=== PATIENT | male | born 1995 | race Caucasian/White ===

== ENCOUNTER 2021-02-04 09:26 | Emergency (ER) | payer BC ==
[2021-02-04 09:33] VITALS: BP 142/101; PULSE 105; RESP 18; TEMP 100
--- NOTE | 2021-02-04 10:20 | ED ---
URI HPI - General Chief Complaint: Upper Respiratory Infection Stated Complaint: covid exposure Time Seen by Provider: 02/04/21 10:01 Source: patient Mode of arrival: ambulatory Limitations: no limitations - History of Present Illness Initial Comments: She is a healthy 25-year-old male presenting to the emergency department with concerns of having having Covid. Patient states his tested positive for covid yesterday. Patient started having sinus drainage, mild cough and some congestion yesterday. He also started developing a fever last night and today. He did take some Tylenol yesterday which did seem to help with his fever. He denies history of asthma or COPD, he does admit to smoking vape. He does admit to some mild body aches. He did not take any Tylenol or Motrin today. He denies any nausea or vomiting, no diarrhea, no chest pain or shortness of breath today, he denies any other complaints at this time. Upon arrival to the ER, he is febrile to 100.0, slightly tachycardia at 105, 92% on room air. - Related Data Allergies Allergy/AdvReac Type Severity Reaction Status Date / Time No Known Allergies Allergy Verified 02/04/21 09:30 Review of Systems ROS Statement: Those systems with pertinent positive or pertinent negative responses have been documented in the HPI. ROS Other: All systems not noted in ROS Statement are negative. Past Medical History Past Medical History: No Reported History History of Any Multi-Drug Resistant Organisms: None Reported Additional Past Surgical History / Comment(s): oral Past Psychological History: Anxiety Smoking Status: Vaper Past Alcohol Use History: Occasional Past Drug Use History: None Reported General Exam - General Exam Comments Initial Comments: GENERAL: Patient is well-developed and well-nourished. Patient is nontoxic and in no acute distress. HEAD: Atraumatic, normocephalic. EYES: Pupils equal round and reactive to light, extraocular movements intact, sclera anicteric, conjunctiva are normal. Eyelids were unremarkable. ENT: TMs normal, nares patent, oropharynx clear without exudates. Moist mucous membranes. NECK: Normal range of motion, supple without lymphadenopathy or JVD. LUNGS: Unlabored respirations. Breath sounds clear to auscultation bilaterally and equal. No wheezes rales or rhonchi. HEART: Slightly tachycardia rate and rhythm without murmurs, rubs or gallops. ABDOMEN: Soft, nontender, normoactive bowel sounds. No guarding, no rebound. No masses appreciated. : Deferred MUSCULOSKELETAL: Normal extremities with adequate strength and normal range of motion, no pitting or edema. No clubbing or cyanosis. NEUROLOGICAL: Patient is alert and oriented x 3. Motor and sensory are also intact. Cranial nerves II through XII grossly intact. Symmetrical smile. Normal speech, normal gait. PSYCH: Normal mood, normal affect. SKIN: Warm, Dry, normal turgor, no rashes or lesions noted. Limitations: no limitations Course Vital Signs 02/04/21 09:30 Temperature 100.0 F H Pulse Rate 105 H Respiratory 18 Rate Blood Pressure 142/101 O2 Sat by Pulse 92 L Oximetry Medical Decision Making - Medical Decision Making Patient is a 25-year-old male here requesting a Covid test. His tested positive yesterday, he started having body aches, chills, congestion yesterday. His rapid test is positive today. Patient did arrive slightly febrile, slightly tachycardia, 92% on room air. His exam is unremarkable, is in no acute distress. No chest pain or shortness of breath reported today. He states he d id not take any Tylenol or Motrin yet today but will take some when he gets home. He does not meet qualifications for antiviral infusion therapy. We discussed continuing to alternate between Tylenol and Motrin for body aches, fever, increase his fluid intake. Patient is stable for discharge. Return parameters were discussed with the patient and he verbalized understanding. - Lab Data Lab Results 02/04/21 Range/Units 09:37 Coronavirus (PCR) Detected A (Not Detectd) Disposition Clinical Impression: COVID-19 Disposition: HOME SELF-CARE Condition: Stable Instructions (If sedation given, give patient instructions): Coronavirus Disease 2019 (COVID-19) Additional Instructions: Please return to the Emergency Department if symptoms worsen or any other concerns. Rapid Covid test is positive today. Alternate between Tylenol and Motrin for body aches, fever control. Increase your fluid intake. Follow-up with your PCP as needed. Is patient prescribed a controlled substance at d/c from ED?: No Referrals: Shilpi Naylor MD [Primary Care Provider] - 1-2 days Time of Disposition: 10:20
== END 2021-02-04 10:41 | disposition home or self-care (01) ==
LOC: EC 09:26
DX: U07.1 COVID-19 (principal); F17.290 Nicotine dependence, other tobacco product, uncomplicated
CPT/HCPCS: 87635; 99283

== ENCOUNTER → 2024-08-14 | Outpatient (CLI) | payer OTHER ==
[2024-08-14 14:18] VITALS: BP 115/76; PULSE 84; RESP 16; TEMP 98
--- NOTE | 2024-08-14 14:44 | P.SLEEP ---
History of Present Illness DATE: 08/14/2024 CONSULTATION/NEW PATIENT EVALUATION HISTORY OF PRESENT ILLNESS/SLEEP-WAKE EVALUATION: 28-year-old gentleman had been evaluated in the sleep center for excessive sleepiness and possible obstructive sleep apnea hypopnea syndrome. SLEEP SCHEDULE: Usually sleep schedule from 11:30 PM to 5:30 AM on weekdays and from 1 AM until 8 AM on weekend. FALLING ASLEEP: Usually no significant problems with falling asleep. DURING SLEEP: Patient snores and wakes up from sleep once with nocturia. No history of hypnogogical hallucinations, sleep paralysis, or cataplexy. DURING THE DAY/WAKE STATE: In the morning patient wake up tired, falling asleep during the day, has problems with memory, concentration and anxiety. [place] sleepiness scale is increased significantly to 14. Usually patient does not take naps. PAST MEDICAL HISTORY: Episodes of anxiety. PAST SURGICAL HISTORY: None. MEDICATIONS: Please see below. SOCIAL HISTORY: Please see below. FAMILY HISTORY: Heart problems, arthritis, snoring. REVIEW OF SYSTEMS: Snoring, sleepiness during the day. No fevers. No double vision. No recent chest pain. No shortness of breath. No abdominal pain. No bleeding episodes. No blood in urine. No seizure episodes. PHYSICAL EXAMINATION: GENERAL: A pleasant patient without any distress. VITAL SIGNS: Please see below, weight 220 pounds, BMI 32. HEENT: PERRLA, EOMI. Evaluation of oropharynx showed tongue protrudes midline, low position of soft palate Mallampati 4. NECK: Supple. No JVD. Thyroid is not palpable. 15.5 inches in circumference. LUNGS: Clear to percussion and to auscultation. Good air exchange. No wheezing or rhonchi. HEART: S1, S2 regular. No murmurs, gallops or rubs. ABDOMEN: Soft and nontender. Bowel sounds are present. No organomegaly appreciated. EXTREMITIES: No clubbing or cyanosis. PSYCHOLOGY PHYSICIAN: Awake, alert, and oriented x3. Cranial nerves 2 to 7 intact. There is no fasciculation or atrophy noted. No focal deficits observed. ASSESSMENT: 1. Snoring, extremely low position of soft palate Mallampati 4, sleepiness. Possible obstructive sleep apnea hypopnea syndrome. 2. Sleepiness with [place] Sleepiness Scale 14 dictate necessity to include hypersomnia differential diagnosis. 3. Obesity in mild range, BMI 32. 4. History of anxiety. PLAN: 1. Polysomnography for evaluation of patient's breathing during sleep, multiple sleep latency test if polysomnogram will be negative for obstructive sleep apnea hypopnea syndrome. 2. Following plan after reading sleep study 3. Preferable position during sleep on the side. 4. No driving if patient feels any sleepiness. Patient is aware of civil and criminal liability for unsafe driving. 5. Sleep hygiene with regular sleep time for at least 7.5-8 hours. 6. Watching and losing weight. Thank you very much for referring this patient for consultation. Sincerely, Pal Abernathy MD, PhD, FAASM. Diplomat of [place] [employer], Sleep Medicine Board by [place] [employer] [place] [employer] Representative of [facility] [place] cc: Kaleb Meraz MD Past Medical History Past Medical History: No Reported History History of Any Multi-Drug Resistant Organisms: None Reported Additional Past Surgical History / Comment(s): vasectomy, oral Past Anesthesia/Blood Transfusion Reactions: No Reported Reaction Past Psychological History: ADD/ADHD, Anxiety Smoking Status: Current every day smoker, Vaper Past Alcohol Use History: Occasional Past Drug Use History: None Reported - Past Family History Father Family Medical History: Coronary Artery Disease (CAD), Rheumatoid Arthritis (RA) Additional Family Medical History / Comment(s): snoring Medications and Allergies Home Medications Medication Instructions Recorded Confirmed Type Citalopram Hydrobromide 40 mg PO DAILY 08/14/24 08/14/24 History [Citalopram HBr] Methylphenidate HCl 20 mg PO BID 08/14/24 08/14/24 History [Methylphenidate ER] Allergies Allergy/AdvReac Type Severity Reaction Status Date / Time No Known Allergies Allergy Verified 02/04/21 09:30 Physical Exam Vitals: Vital Signs Temp Pulse Resp BP Pulse Ox 08/14/24 14:16 98 F 84 16 115/76 97 Intake and Output 08/13/24 08/14/24 08/14/24 22:59 06:59 14:59 Other: Weight 99.79 kg Sleep Note - Sleep Data ESS Total: 14 - Sleep Note Sleep Note: Temperature: 98 F Pulse Rate: 84 Respiratory Rate: 16 Blood Pressure: 115/76 SpO2: 97 Height: 5 ft 9 in Weight: 99.79 kg BMI: Neck Circumference: 15.5
== END ==
LOC: 3 N SLEEP 14:00
PROVIDERS: ATTEND Internal Medicine
CPT/HCPCS: 99202

== ENCOUNTER 2024-09-01 19:30 | Outpatient (CLI) | payer OTHER ==
[2024-09-02 23:19] LABS: Urine Alcohol Negative (Negative); Urine Barbiturate Negative (Negative); Urine Cocaine Negative (Negative); Urine Methadone Negative (Negative); Urine Opiates Negative (Negative); Urine Phencyclidine Negative (Negative)
--- NOTE | 2024-09-11 13:47 | P.PCN ---
Description of Procedure: POLYSOMNOGRAPHY AND MSLT REPORT PROCEDURE(S)/DATE(S): Polysomnography 09/01/2024, multiple sleep latency test 09/02/2024 CLINICAL: Patient has been seen in the sleep center for evaluation of obstructive sleep apnea-hypopnea syndrome. Please see my consultation. Sleep study has been done for evaluation of patient breathing during the sleep. PROCEDURE: The standard montage for clinical polysomnography included the electroencephalogram, the electrooculogram, the mentalis surface elec tromyography and Lead II cardiography. The respiratory battery consisted of measurements of nasal/buccal air flow, pressure transducer measurements from nose, thoracic and/or abdominal effort and intercostal surface electromyography. Video monitoring has been done to check for any parasomnia events. Nocturnal oxyhemoglobin saturations were obtained by finger oximetry. Step-drake titration with positive airway pressure was utilized to control the respiratory events, if necessary. RESULTS: During the diagnostic sleep study sleep efficiency was normal 91.9%. Latency to sleep onset was normal 11.0 min. Sleep architecture showed stage NI normal 5.2%, Delta sleep was normal 26.0%, REM sleep was borderline 19.0%. Respiratory channel showed 3 obstructive apneas, 1 mixed apneas, 0 central apneas, 7 hypopneas with lowest oxygen level 82%, oxygen level was below normal for 1.5 minutes, total apnea hypopnea index was 1.8. Heart rate was in the range between 55 and 66, average 60. EMG showed 1.6 periodic limb movements per hour. Multiple sleep latency test was done on the following day and consisted from 5 naps. Patient fell asleep on all naps with mean sleep latency 5.0 minutes. No sleep onset REM periods have been documented. IMPRESSIONS: 1. No significant abnormalities of respiration have been documented during diagnostic polysomnogram. 2. No significant periodic limb movements have been documented. 3. Multiple sleep latency test confirmed pathological sleepiness, mean sleep latency 5.0 minutes. No sleep onset REM periods have been documented, but patient is on treatment with SSRI, which may decrease amount of REM sleep. Differential diagnosis include narcolepsy and idiopathic hypersomnia. 4. Loud snoring have been documented during the sleep study. Please see other impressions from consultation PLAN: 1. I will see patient follow-up visit to discuss results of the test and recommendations. 2. Losing weight program. 3. Sleep hygiene with regular time in bed for at least 7-1/2 hours. 4. No driving if feeling sleepiness. Thank you very much for allowing me to participate in the management of your patient. Sincerely, Pal Abernathy MD, PhD, FAASM. Diplomat of [place] [employer], Sleep Medicine Board by [place] [employer] [facility] [place] cc: Kaleb Meraz MD
== END 2024-09-02 17:15 | disposition home or self-care (01) ==
LOC: 3 N SLEEP 19:30
PROVIDERS: ATTEND Internal Medicine
DX: G47.33 Obstructive sleep apnea (adult) (pediatric) (principal); G47.10 Hypersomnia, unspecified; G47.419 Narcolepsy without cataplexy
CPT/HCPCS: 80306; 95805; 95810

== ENCOUNTER → 2024-09-11 | Outpatient (CLI) | payer OTHER ==
[2024-09-11 15:45] VITALS: BP 113/77; PULSE 78; RESP 16; TEMP 98.1
--- NOTE | 2024-09-11 16:41 | P.PROGSL ---
Subjective DATE: 09/11/2024 FOLLOW UP VISIT. Patient returned to sleep center for follow-up visit to discuss results of sleep studies and following plan. I discussed results of sleep studies with patient in details. Diagnostic polysomnogram did not show any significant respiratory abnormalities. Multiple sleep latency test which was done on the following day consisted from 5 naps patient, patient fell asleep on all naps quickly, mean sleep latency was 5 minutes. No sleep onset REM periods have been documented but patient is on treatment with SSRIs which may decrease amount of REM sleep. Patient continued to feel sleepiness during the day. . [place] sleepiness scale is increased to 13. MEDICATIONS:1. Methylphenidate 20 mg twice a day for ADHD 2. Citalopram 40 mg once a day During physical exam: GENERAL: A pleasant patient without any distress. VITAL SIGNS: Please see below. HEENT: PERRLA, EOMI. NECK: Supple. No JVD. LUNGS: Clear to percussion and to auscultation. Good air exchange. No wheezing or rhonchi. HEART: S1, S2 regular. ABDOMEN: Soft and nontender. EXTREMITIES: No clubbing or cyanosis. TOWER CONTROL OPERATOR: Awake, alert, and oriented x3. No focal deficit. Impressions: 1. No significant respiratory abnormalities during diagnostic polysomnogram 2. Multiple sleep latency test confirmed pathological sleepiness, mean sleep latency 5 minutes. No sleep onset REM periods, but patient is on treatment with SSRIs, which may decrease amount of REM sleep. 3. ADHD, patient is on treatment with methylphenidate 20 mg twice a day at the present time. 4. Mild obesity. 5. History of anxiety. Plan: 1. I discussed with the patient in details possibility of treatment for excessive daytime sleepiness with pharmacotherapy. Presently he is on methylphenidate 20 mg twice a day, but continued to feel sleepiness. Patient is planning to see his psychiatrist for treatment of ADHD, possibly to change medications to the next several days. I would consider to start patient on armodafinil starting with a low-dose 150 mg once a day. 2. Sleep hygiene with regular time in bed for at least 8 hours. 3. Daytime naps permitted 4. Precautions related to driving. No driving if feel any sleepiness. Patient is aware about civil and criminal liability for unsafe driving, promised to f charlielow recommendations. 5. Follow up visit in 1-2 months or earlier if patient has any problems. Thank you very much for allowing me to participate in the management of your patient. Pal Abernathy MD, PhD, FAASM. Diplomat of [place] [employer], Sleep Medicine Board by [place] [employer] Technical Communicator of [facility] [place] cc: Kaleb Meraz MD Objective - Vital Signs Vital Signs: Vital Signs Temp 98.1 F 09/11/24 15:44 Pulse 78 09/11/24 15:44 Resp 16 09/11/24 15:44 BP 113/77 09/11/24 15:44 Pulse Ox 98 09/11/24 15:44 FiO2 Intake & Output 09/10/24 09/11/24 09/11/24 18:59 06:59 18:59 Weight 99.79 kg Home Medications: Home Medications Medication Instructions Recorded Confirmed Type Citalopram Hydrobromide 40 mg PO DAILY 08/14/24 08/14/24 History [Citalopram HBr] Methylphenidate HCl 20 mg PO BID 08/14/24 08/14/24 History [Methylphenidate ER]
== END ==
LOC: 3 N SLEEP 14:21
PROVIDERS: ATTEND Internal Medicine
DX: G47.10 Hypersomnia, unspecified (principal); E66.9 Obesity, unspecified; F90.9 Attention-deficit hyperactivity disorder, unspecified type; F41.9 Anxiety disorder, unspecified; G47.52 REM sleep behavior disorder; Z68.32 Body mass index [BMI] 32.0-32.9, adult
CPT/HCPCS: 99212